=== PATIENT | female | born 1975 | race Caucasian/White ===

== ENCOUNTER 2017-11-25 18:45 | Emergency (ER) | payer OTHER ==
[~2017-11-25] VITALS: Ht 160 cm; Wt 57.2 kg
[~2017-11-25 18:45] MED LIST: GLUMETZA1000 MG PO; KETO10TA2 PO; ORPH100T PO
[2017-11-25] MEDS ORDERED: NEURONTIN800 MG (19:21)
[2017-11-25] MEDS ORDERED: METFORMIN HCL500 MG (19:21)
[2017-11-26] MEDS ORDERED: CIPRO500 MG PO (03:29)
== END 2017-11-26 03:40 | disposition home or self-care (01) ==
LOC: ER 18:45
DX: R73.9 Hyperglycemia, unspecified (principal); E86.0 Dehydration; N39.0 Urinary tract infection, site not specified

== ENCOUNTER 2022-01-07 09:01 | Inpatient (IN) | payer OTHER ==
[~2022-01-07] VITALS: Ht 160 cm; Wt 77.1 kg
[~2022-01-07 09:01] MED LIST changes: +CIPRO500 MG PO; +METFORMIN HCL500 MG; +NEURONTIN800 MG
[2022-01-07] MEDS ORDERED: HYDRODIURIL12.5 MG PO (09:30)
[2022-01-07] MEDS ORDERED: CARVEDILOL12.5 MG PO (09:30)
[2022-01-07] MEDS ORDERED: NASAL MIST126 ML (09:31)
[2022-01-07] MEDS ORDERED: LIPITOR40 MG PO (09:31)
[2022-01-07] MEDS ORDERED: LASIX20 MG PO (09:32)
[2022-01-07] MEDS ORDERED: ASA81 MG PO (09:32)
[2022-01-07] MEDS ORDERED: INSULIN SYRING1 EA29 MC (09:33)
== END 2022-01-11 13:28 | disposition home or self-care (01) | DRG 683 ==
LOC: ER 09:01 → MEDI 19:12 → SEC-K 19:12 → MEDI 20:50
PROVIDERS: ADMIT Internal Medicine; ATTEND Internal Medicine
PROC: B54DZZZ Ultrasonography of Bilateral Lower Extremity Veins (ICD-10-PCS; principal; 2022-01-07)
PROC: B24BZZZ Ultrasonography of Heart with Aorta (ICD-10-PCS; 2022-01-07)
PROC: 30233N1 Transfusion of Nonautologous Red Blood Cells into Peripheral Vein, Percutaneous Approach (ICD-10-PCS; 2022-01-08)
DX: I12.9 Hypertensive chronic kidney disease with stage 1 through stage 4 chronic kidney disease, or unspecified chronic kidney disease (principal); N17.8 Other acute kidney failure; N18.4 Chronic kidney disease, stage 4 (severe); R60.1 Generalized edema; E87.5 Hyperkalemia; D63.1 Anemia in chronic kidney disease; E11.22 Type 2 diabetes mellitus with diabetic chronic kidney disease; Z79.4 Long term (current) use of insulin; Z20.822 Contact with and (suspected) exposure to COVID-19; E11.21 Type 2 diabetes mellitus with diabetic nephropathy

== ENCOUNTER 2022-11-16 06:53 | Inpatient (IN) | payer OTHER ==
[~2022-11-16] VITALS: Ht 160 cm; Wt 90.7 kg
[~2022-11-16 06:53] MED LIST changes: +ASA81 MG PO; +CARVEDILOL12.5 MG PO; +HYDRODIURIL12.5 MG PO; +INSULIN SYRING1 EA29 MC; +LASIX20 MG PO; +LIPITOR40 MG PO; +NASAL MIST126 ML
[2022-11-16] MEDS ORDERED: FEOSOL325 MG PO (07:46)
[2022-11-16] MEDS ORDERED: SODIUM BICARBO650 MG PO (07:47)
[2022-11-16] MEDS ORDERED: CARVEDILOL ER40 MG PO (07:48)
[2022-11-16] MEDS ORDERED: COZAAR100 MG PO (07:48)
[2022-11-16] MEDS ORDERED: FOLIC ACID0.8 M1 PO (07:49)
--- NOTE | 2022-11-16 07:49 | NUR ---
PTE ALERTA Y ORIENTADA X3, REFIERE LLEVAR DESDE HACE 3 SEMANAS CON DOLOR CORPORAL E INCHAZON EN MEAGHAN EXTREMIDADES. PTE SE MIDEN S/V Y SE UBICA EN FT.
--- NOTE | 2022-11-16 08:52 | NUR ---
CHAITANYA FARIA ORIENTA A PTE SOBRE TRATAMIENTO E INSTRUCCIONES A SEGUIR, STEVEN REFIERE ENTENDER. LE COLECTA MUESTRAS, SE CANALIZA Y SE ADMINISTRA MEDICAMENTO TYSHAWN ORDEN MEDICA
[2022-11-16 09:24] LABS: HEMATOCRIT 24.1 % (36.0-45.00); MEAN CORPUSCULAR HEMOGLOBIN 29.3 pg (27.00-32.0); MEAN CORPUSCULAR HGB CONC 31.9 g/dl (32.0-36.0); PLATELET COUNT 163 K/uL (150-450); RED BLOOD COUNT 2.62 M/uL (4.00-6.00); RED CELL DISTRIBUTION WIDTH 13.7 % (11.5-14.5)
[2022-11-16 09:28] LABS: HEMOGLOBIN 7.7 g/dL (12.0-15.00)
[2022-11-16 09:34] LABS: PH,URINE 5.5 (5.0-8.0); URINE APPEARANCE Cloudy; URINE BILIRRUBIN Negative (NEGATIVE); URINE BLOOD Moderate; URINE COLOR Yellow; URINE LEUKOCYTE Negative; URINE NITRATE Negative; URINE PROTEIN >=1000 (NEGATIVE); URINE UROBILINOGEN 0.2 E.U./dl
[2022-11-16 09:35] LABS: URINE BACTERIA 1154.5 uL (0.0-1933); URINE EPITHELIAL CELLS 55.3 uL (0.0-38.8); URINE RBC 19.2 uL (0.0-20.8); URINE WBC 82.7 uL (0.0-23.2)
[2022-11-16 09:58] LABS: URINE CRYSTALS NEGATIVE /HPF; URINE GLUCOSE 250 MG/DL (NEGATIVE)
[2022-11-16 09:59] LABS: URINE YEAST NEGATIVE /hpf
[2022-11-16 10:01] LABS: ALKALINE PHOSPHATASE 100 U/L (50-136); ALT/SGPT 18 U/L (12-78); AST/SGOT 19 U/L (15-37); BILIRUBIN TOTAL 0.19 mg/dL (0.3-1.2); BILIRUBIN,CONJUGATED < 0.10 mg/dL (0.0-0.2); BILIRUBIN,UNCONJUGATED 0.09 mg/dL (0.0-0.6); BLOOD UREA NITROGEN 52 mg/dL (7-18); BUN CREA RATIO 13 (7.0-25.0); CALCIUM 7.6 mg/dL (8.5-10.1); CARBON DIOXIDE 22 mEq/L (21-32); CREATININE SERUM 3.88 mg/dL (0.55-1.02); GFR 12.38; GLOBULINA 4.2 G/DL (2.4-3.5); GLUCOSE FASTING 114 mg/dL (65-100); LDH 244 U/L (84-246); OSMOLALITY SERUM 294 MOSM/KG (275-295); PHOSPHOKINASE CREATININE 287 U/L (26-192); PHOSPHOROUS 4.2 mg/dL (2.5-4.9); SODIUM 140 mmol/L (136-145); TOTAL PROTEIN 6.2 gm/dL (6.4-8.2)
[2022-11-16 10:08] LABS: ANION GAP 8 (10.0-20.0); CHLORIDE 117 mmol/L (98-107); POTASSIUM 6.51 mEq/L (3.5-5.1)
--- NOTE | 2022-11-16 15:19 | NUR ---
SE RECIBE PTE FEMENINA DE 47 ANOS AELRTA Y ORIENTADA X3 QUIEN AL MOMENOT NO REFIERE DOLOR PTE AL MOMENTO SE OBSERBA CON H/L EN BRAZO DERECHO. PTE AL MOMENTO PEND A CONSULTA CON DR MCCALL
[2022-11-16 19:45] LABS: ABG PH 7.293 (7.35-7.45); ABG pCO2 41.4 mmHg (35-45); BASE EXCESS -6.6 mmol/l; BICARBONATE 19.6 mmol/l (23-25); SaO2 94.3 %; Tco2 20.9 mmol/l; allen test SATISFACTORY; o2 21 %; puncture site RADIAL LEFT
[2022-11-16 20:58] LABS: INR 1.09; PROTHROMBIN TIME 11.4 SECONDS (9.0-11.5)
[2022-11-16 21:14] LABS: D DIMER 2.68 MG/L; PARTIAL THROMBOPLASTIN TIME 29.5 SECONDS (22.0-34.0)
[2022-11-18 09:44] LABS: HEMATOCRIT 29.4 % (36.0-45.00); MEAN CELL VOLUME 91.3 fL (80.00-100.00); MEAN CORPUSCULAR HGB CONC 33.2 g/dl (32.0-36.0); PLATELET COUNT 177 K/uL (150-450); RED BLOOD COUNT 3.22 M/uL (4.00-6.00); RED CELL DISTRIBUTION WIDTH 13.7 % (11.5-14.5)
[2022-11-18 09:56] LABS: HEMOGLOBIN 9.8 g/dL (12.0-15.00); MEAN CORPUSCULAR HEMOGLOBIN 30.4 pg (27.00-32.0)
[2022-11-20 06:52] LABS: ALBUMIN 1.8 gm/dL (3.4-5.0); CALCIUM 7.4 mg/dL (8.5-10.1); CHOL HDL RATIO 1.7 (0-5.0); CREATININE SERUM 2.97 mg/dL (0.55-1.02); GFR 16.85; MAGNESIUM 1.5 mg/dL (1.8-2.4); PHOSPHOROUS 3.7 mg/dL (2.5-4.9); POTASSIUM 4.67 mEq/L (3.5-5.1)
[2022-11-20 07:02] LABS: HEMATOCRIT 26.8 % (36.0-45.00); HEMOGLOBIN 9.1 g/dL (12.0-15.00); MEAN CORPUSCULAR HEMOGLOBIN 30.5 pg (27.00-32.0); MEAN CORPUSCULAR HGB CONC 33.9 g/dl (32.0-36.0); PLATELET COUNT 135 K/uL (150-450); RED BLOOD COUNT 2.98 M/uL (4.00-6.00); RED CELL DISTRIBUTION WIDTH 13.7 % (11.5-14.5)
[2022-11-21 08:37] LABS: T4 TOTAL 7.7 UG/DL (4.8-13.9)
[2022-11-21 09:03] LABS: TSH 5.79 uIU/mL (0.358-3.74)
[2022-11-21 13:07] LABS: a:g ratio 0.7 (0.7-1.7); alpha 1 g 0.2 g/dL (0.0-0.4); alpha 2 0.6 g/dL (0.4-1.0); beta g 1.1 g/dL (0.7-1.3); gamma g 1.3 g/dL (0.4-1.8); globulin t 3.2 g/dL (2.2-3.9); prot total 5.5 g/dL (6.0-8.5)
[2022-11-23 07:15] LABS: ALBUMIN 1.8 gm/dL (3.4-5.0); BILIRUBIN TOTAL 0.21 mg/dL (0.3-1.2); CALCIUM 7.7 mg/dL (8.5-10.1); GFR 11.52; GLOBULINA 3.7 G/DL (2.4-3.5); POTASSIUM 4.5 mEq/L (3.5-5.1); TOTAL PROTEIN 5.5 gm/dL (6.4-8.2)
[2022-11-23 08:13] LABS: CREATININE SERUM 4.13 mg/dL (0.55-1.02)
[2022-11-23 09:36] LABS: HEMATOCRIT 27.2 % (36.0-45.00); MEAN CELL VOLUME 91.3 fL (80.00-100.00); MEAN CORPUSCULAR HGB CONC 32.8 g/dl (32.0-36.0); RED BLOOD COUNT 2.98 M/uL (4.00-6.00); RED CELL DISTRIBUTION WIDTH 13.3 % (11.5-14.5)
[2022-11-23 09:43] LABS: MEAN CORPUSCULAR HEMOGLOBIN 29.8 pg (27.00-32.0)
[2022-11-23 09:45] LABS: HEMOGLOBIN 8.9 g/dL (12.0-15.00)
[2022-11-23 09:54] LABS: INR 1.1; PARTIAL THROMBOPLASTIN TIME 31.9 SECONDS (22.0-34.0); PROTHROMBIN TIME 11.5 SECONDS (9.0-11.5)
[2022-11-23 10:04] LABS: PLATELET COUNT 119 K/uL (150-450)
[2022-11-25 10:47] LABS: HEMATOCRIT 27.7 % (36.0-45.00); MEAN CELL VOLUME 92.4 fL (80.00-100.00); MEAN CORPUSCULAR HGB CONC 31.7 g/dl (32.0-36.0); RED CELL DISTRIBUTION WIDTH 13.2 % (11.5-14.5)
[2022-11-25 10:48] LABS: MEAN CORPUSCULAR HEMOGLOBIN 29.3 pg (27.00-32.0)
[2022-11-25 10:49] LABS: HEMOGLOBIN 8.8 g/dL (12.0-15.00); PLATELET COUNT 123 K/uL (150-450)
[2022-11-25 11:03] LABS: BILIRUBIN TOTAL 0.23 mg/dL (0.3-1.2); CALCIUM 8.2 mg/dL (8.5-10.1); CREATININE SERUM 3.81 mg/dL (0.55-1.02); GFR 12.64; GLOBULINA 4.1 G/DL (2.4-3.5); POTASSIUM 4.31 mEq/L (3.5-5.1); TOTAL PROTEIN 6.1 gm/dL (6.4-8.2)
[2022-11-27 07:05] LABS: HEMATOCRIT 23.8 % (36.0-45.00); MEAN CELL VOLUME 93.9 fL (80.00-100.00); MEAN CORPUSCULAR HGB CONC 32.7 g/dl (32.0-36.0); RED BLOOD COUNT 2.53 M/uL (4.00-6.00); RED CELL DISTRIBUTION WIDTH 13.1 % (11.5-14.5)
[2022-11-27 07:30] LABS: MEAN CORPUSCULAR HEMOGLOBIN 30.8 pg (27.00-32.0)
[2022-11-27 07:31] LABS: PLATELET COUNT 113 K/uL (150-450)
[2022-11-27 07:32] LABS: HEMOGLOBIN 7.8 g/dL (12.0-15.00)
[2022-11-27 16:42] LABS: HEMATOCRIT 31.6 % (36.0-45.00); HEMOGLOBIN 10.6 g/dL (12.0-15.00); MEAN CELL VOLUME 87.9 fL (80.00-100.00); MEAN CORPUSCULAR HEMOGLOBIN 29.5 pg (27.00-32.0); MEAN CORPUSCULAR HGB CONC 33.5 g/dl (32.0-36.0); RED BLOOD COUNT 3.59 M/uL (4.00-6.00); RED CELL DISTRIBUTION WIDTH 15.1 % (11.5-14.5)
[2022-11-27 16:43] LABS: PLATELET COUNT 103 K/uL (150-450)
== END 2022-11-27 22:55 | disposition home or self-care (01) | DRG 682 ==
LOC: ER 06:53 → MEDI 19:12 → SEC-K 19:12 → MEDI 11-18 10:26
PROVIDERS: General Practice; Internal Medicine; Internal Medicine Endocrinology, Diabetes & Metabolism; Internal Medicine Nephrology; ADMIT Internal Medicine; ATTEND Internal Medicine
PROC: BW21ZZZ Computerized Tomography (CT Scan) of Abdomen and Pelvis (ICD-10-PCS; 2022-11-16)
PROC: B246ZZZ Ultrasonography of Right and Left Heart (ICD-10-PCS; 2022-11-16)
PROC: 4A12X4Z Monitoring of Cardiac Electrical Activity, External Approach (ICD-10-PCS; 2022-11-17)
PROC: 05H533Z Insertion of Infusion Device into Right Subclavian Vein, Percutaneous Approach (ICD-10-PCS; 2022-11-17)
PROC: 30233N1 Transfusion of Nonautologous Red Blood Cells into Peripheral Vein, Percutaneous Approach (ICD-10-PCS; 2022-11-17)
PROC: 05HM33Z Insertion of Infusion Device into Right Internal Jugular Vein, Percutaneous Approach (ICD-10-PCS; principal; 2022-11-18)
PROC: B543ZZA Ultrasonography of Right Jugular Veins, Guidance (ICD-10-PCS; 2022-11-18)
PROC: 5A1D70Z Performance of Urinary Filtration, Intermittent, Less than 6 Hours Per Day (ICD-10-PCS; 2022-11-19)
PROC: 5A1D70Z Performance of Urinary Filtration, Intermittent, Less than 6 Hours Per Day (ICD-10-PCS; 2022-11-20)
PROC: 5A1D70Z Performance of Urinary Filtration, Intermittent, Less than 6 Hours Per Day (ICD-10-PCS; 2022-11-23)
PROC: 02H633Z Insertion of Infusion Device into Right Atrium, Percutaneous Approach (ICD-10-PCS; 2022-11-24)
PROC: 5A1D70Z Performance of Urinary Filtration, Intermittent, Less than 6 Hours Per Day (ICD-10-PCS; 2022-11-25)
DX: N17.8 Other acute kidney failure (principal); I50.33 Acute on chronic diastolic (congestive) heart failure; I13.2 Hypertensive heart and chronic kidney disease with heart failure and with stage 5 chronic kidney disease, or end stage renal disease; N18.6 End stage renal disease; D63.1 Anemia in chronic kidney disease; E87.5 Hyperkalemia; D64.89 Other specified anemias; E11.22 Type 2 diabetes mellitus with diabetic chronic kidney disease; E03.8 Other specified hypothyroidism; R60.1 Generalized edema; Z74.01 Bed confinement status; Z99.2 Dependence on renal dialysis; Z79.4 Long term (current) use of insulin